=== PATIENT | male | born 1995 | race Caucasian/White ===

== ENCOUNTER 2018-09-07 08:32 | Emergency (ER) | payer BC, OTHER ==
[~2018-09-07] VITALS: Ht 175.3 cm; Wt 59.0 kg
[2018-09-07] MEDS ORDERED: FAMOTIDINE 20 MG/2 ML VIAL IVP ONE (09:00)
[2018-09-07] MEDS ORDERED: IV NORMAL SALINE 1000ML BAG 1,000 ML IV ONE ×2 (09:00→09:15)
[2018-09-07] MEDS ORDERED: ONDANSETRON PF 4 MG/2 ML VIAL. IV ONE ×2 (09:00→09:45)
--- NOTE | 2018-09-07 09:00 | PHYS DOC ---
Past Medical History Past Medical History: Asthma Past Surgical History: No Surgical History Alcohol Use: Rarely Drug Use: Marijuana Adult General Chief Complaint Chief Complaint: NAUSEA/VOMITING/DIARRHA HPI HPI Patient is a 23 year old male with history of asthma who presents to the ED today with nausea, vomiting, diarrhea, generalized abdominal pain, symptoms began last night. Patient denies any fever. Denies any hematemesis or melena. He states he has generalized weakness. He admits to marijuana use. Review of Systems Review of Systems Constitutional: Denies fever or chills [] Eyes: Denies change in visual acuity, redness, or eye pain [] HENT: Denies nasal congestion or sore throat [] Respiratory: Denies cough or shortness of breath [] Cardiovascular: No additional information not addressed in HPI [] GI: Reports generalized abdominal pain, nausea, vomiting, diarrhea : Denies dysuria or hematuria [] Musculoskeletal: Denies back pain or joint pain [] Integument: Denies rash or skin lesions [] Neurologic: Denies headache, focal weakness or sensory changes [] All other systems were reviewed and found to be within normal limits, except as documented in this note. Current Medications Current Medications Current Medications Medications (Trade) Dose Ordered Sig/Melissa Start Time Stop Time Status Last Admin Dose Admin Famotidine (Pepcid Vial) 20 mg 1X ONCE 09/07/18 09:00 09/07/18 09:01 DC 09/07/18 09:09 20 MG Haloperidol Lactate (Haldol Inj) 2.5 mg 1X ONCE 09/07/18 10:15 09/07/18 10:16 DC Info (CONTRAST GIVEN -- Rx MONITORING) 1 each PRN DAILY PRN 09/07/18 09:45 09/09/18 09:44 Iohexol (Omnipaque 300 Mg/ml) 75 ml 1X ONCE 09/07/18 09:45 09/07/18 09:46 DC 09/07/18 09:50 75 ML Ondansetron HCl (Zofran) 4 mg 1X ONCE 09/07/18 09:45 09/07/18 09:46 DC 09/07/18 09:57 4 MG Sodium Chloride 1,000 ml @ 1,000 mls/hr 1X ONCE 09/07/18 09:15 09/07/18 10:14 DC 09/07/18 09:58 1,000 MLS/HR Allergies Allergies Allergies Coded Allergies Type Severity Reaction Last Updated Verified No Known Drug Allergies 09/09/14 No Physical Exam Physical Exam Constitutional: Well developed, well nourished, no acute distress, non-toxic appearance. [] HENT: Normocephalic, atraumatic, bilateral external ears normal, oropharynx moist, no oral exudates, nose normal. [] Eyes: PERRLA, EOMI, conjunctiva normal, no discharge. [] Neck: Normal range of motion, no tenderness, supple, no stridor. [] Cardiovascular:Heart rate regular rhythm, no murmur [] Lungs & Thorax: Bilateral breath sounds clear to auscultation [] Abdomen: Patient is actively vomiting in the ED. Bowel sounds normal, soft, no tenderness, no masses, no pulsatile masses. [] Skin: Warm, dry, no erythema, no rash. [] Back: No tenderness, no CVA tenderness. [] Extremities: No tenderness, no cyanosis, no clubbing, ROM intact, no edema. [] Neurologic: Alert and oriented X 3, normal motor function, normal sensory function, no focal deficits noted. [] Psychologic: Affect normal, judgement normal, mood normal. [] Current Patient Data Vital Signs Vital Signs Date Time Temp Pulse Resp B/P (MAP) Pulse Ox O2 Delivery O2 Flow Rate FiO2 09/07/18 12:13 53 18 158/95 (116) 99 Room Air 09/07/18 08:40 97.2 97.2 Lab Values Laboratory Tests Test 09/07/18 08:51 09/07/18 08:55 09/07/18 10:45 Glucose (Fingerstick) 185 mg/dL (70-99) H White Blood Count 15.6 x10^3/uL (4.0-11.0) H Red Blood Count 4.84 x10^6/uL (4.30-5.70) Hemoglobin 14.5 g/dL (13.0-17.5) Hematocrit 42.5 % (39.0-53.0) Mean Corpuscular Volume 88 fL (79-100) Mean Corpuscular Hemoglobin 30 pg (25-35) Mean Corpuscular Hemoglobin Concent 34 g/dL (31-37) Red Cell Distribution Width 13.7 % (11.5-14.5) Platelet Count 294 x10^3/uL (140-400) Neutrophils (%) (Auto) 55 % (31-73) Lymphocytes (%) (Auto) 36 % (24-48) Monocytes (%) (Auto) 6 % (0-9) Eosinophils (%) (Auto) 2 % (0-3) Basophils (%) (Auto) 1 % (0-3) Neutrophils # (Auto) 8.6 x10^3uL (1.8-7.7) H Lymphocytes # (Auto) 5.6 x10^3/uL (1.0-4.8) H Monocytes # (Auto) 0.9 x10^3/uL (0.0-1.1) Eosinophils # (Auto) 0.3 x10^3/uL (0.0-0.7) Basophils # (Auto) 0.1 x10^3/uL (0.0-0.2) Sodium Level 137 mmol/L (136-145) Potassium Level 3.5 mmol/L (3.5-5.1) Chloride Level 100 mmol/L (98-107) Carbon Dioxide Level 19 mmol/L (21-32) L Anion Gap 18 (6-14) H Blood Urea Nitrogen 17 mg/dL (8-26) Creatinine 0.9 mg/dL (0.7-1.3) Estimated GFR (Cockcroft-Gault) 106.5 BUN/Creatinine Ratio 19 (6-20) Glucose Level 175 mg/dL (70-99) H Calcium Level 9.6 mg/dL (8.5-10.1) Total Bilirubin 2.0 mg/dL (0.2-1.0) H Aspartate Amino Transferase (AST) 19 U/L (15-37) Alanine Aminotransferase (ALT) 16 U/L (16-63) Alkaline Phosphatase 71 U/L (46-116) Total Protein 8.8 g/dL (6.4-8.2) H Albumin 4.8 g/dL (3.4-5.0) Albumin/Globulin Ratio 1.2 (1.0-1.7) Lipase 199 U/L (73-393) Salicylates Level < 2.8 mg/dL (2.8-20.0) L Salicylate Last Dose Date Unknown Salicylate Last Dose Time Unknown Acetaminophen Level < 2 mcg/ml (10-30) L Acetaminophen Last Dose Date Unknown Acetaminophen Last Dose Time Unknown Ethyl Alcohol Level < 10 mg/dL (0-10) Urine Collection Type Unknown Urine Color Yellow Urine Clarity Clear Urine pH 7.0 Urine Specific [place] >=1.030 Urine Protein Negative mg/dL (NEG-TRACE) Urine Glucose (UA) Negative mg/dL (NEG) Urine Ketones (Stick) >=80 mg/dL (NEG) Urine Blood Negative (NEG) Urine Nitrite Negative (NEG) Urine Bilirubin Negative (NEG) Urine Urobilinogen Dipstick 0.2 mg/dL (0.2 mg/dL) Urine Leukocyte Esterase Negative (NEG) Urine RBC 0 /HPF (0-2) Urine WBC 1-4 /HPF (0-4) Urine Squamous Epithelial Cells Occ /LPF Urine Bacteria Few /HPF (0-FEW) Urine Mucus Slight /LPF Urine Opiates Screen Neg (NEG) Urine Methadone Screen Neg (NEG) Urine Barbiturates Neg (NEG) Urine Phencyclidine Screen Neg (NEG) Urine Amphetamine/Methamphetamine Neg (NEG) Urine Benzodiazepines Screen Neg (NEG) Urine Cocaine Screen Neg (NEG) Urine Cannabinoids Screen Pos (NEG) Urine Ethyl Alcohol Neg (NEG) Laboratory Tests 09/07/18 08:55 Laboratory Tests 09/07/18 08:55 EKG EKG [address] Contreras Sinus arrhythmia heart rate 54 no STEMI Radiology/Procedures Radiology/Procedures []PROCEDURE: CT ABD PELV W/ IV CONTRST ONLY CT abdomen pelvis with contrast dated 09/07/2018. No comparison available. Clinical data indication: Nausea vomiting abdominal pain. TECHNIQUE: Contiguous axial imaging the abdomen and pelvis performed after the administration of 75 cc Omnipaque 300. One or more of the following individualized dose reduction techniques were utilized for this examination: 1. Automated exposure control 2. Adjustment of the mA and/or kV according to patient size 3. Use of iterative reconstruction technique FINDINGS: Limited images of lung bases are clear. Heart size within normal limits. No pleural or pericardial effusion. Liver, spleen, pancreas, adrenal glands, gallbladder and kidneys are unremarkable. No hydronephrosis. Unopacified GI tract normal in caliber and contour. No focal bowel wall thickening. No inflammatory stranding in the mesentery. Appendix normal in caliber. No ascites or lymphadenopathy. Abdominal aorta normal in caliber. Images of pelvis show nondistended urinary bladder. No free pelvic fluid or pelvic lymphadenopathy. There is a nodular focus of soft tissue density in the left inguinal canal of uncertain etiology. Bone windows show no acute findings. IMPRESSION: 1. No acute abnormality of abdomen or pelvis. Normal appendix. 2. Abnormal focus of soft tissue density in the left inguinal canal, possibly related to an undescended testicle. Recommend physical exam correlation. Electronically signed by: Harshil Mercado MD (09/07/2018 10:16 AM) [facility] DICTATED and SIGNED BY: HARSHIL MERCADO MD DATE: 09/07/18 1016 Course & Med Decision Making Course & Med Decision Making Pertinent Labs and Imaging studies reviewed. (See chart for details) This is a 23-year-old male patient presenting to the ED today with nausea, vomiting, diarrhea, generalized abdominal pain, symptoms began last night, patient actively vomiting loudly on arrival to the ED. He admits to marijuana use. CBC with a WBC of 15.6, CMP with nothing really acute. Positive for marijuana use. I highly suspect this patient has cyclic vomiting from marijuana use. Patient was given 2 L of IV fluids, nausea medicine, Haldol. He has stopped vomiting. He'll be discharged to home. Educated on not using marijuana. Follow- up with GI in one week. Dragon Disclaimer Mario Disclaimer This electronic medical record was generated, in whole or in part, using a voice recognition dictation system. Departure Departure Impression: Primary Impression: Cyclical vomiting Additional Impression: Marijuana user Disposition: HOME, SELF-CARE Condition: STABLE Referrals: NO PCP (PCP) SAMARA LIU MD follow up in 1 week Patient Instructions: Cyclic Vomiting Syndrome, Marijuana Abuse-Brief Additional Instructions: You were evaluated in the emergency room, and noted to be using marijuana, people who use marijuana tend to have cyclic vomiting, this condition causes cycles of nausea and vomiting. We recommend you consider not using this drug. Follow-up with your own doctor in 1-3 weeks. Scripts Albuterol Sulfate (VENTOLIN HFA INHALER) 18 Gm Hfa.aer.ad 2 PUFF INH Q4HRS for FOR ASTHMA, #1 INHALER 0 Refills Prov: MUTUNGA,POLLO BUILD [employer]OM[employer] ENGINEER 09/07/18 Ondansetron Hcl (ZOFRAN) 4 Mg Tablet 1 TAB PO Q6HRS, #20 TAB Prov: MUTUNGA,POLLO BUILD [employer]OM[employer] ENGINEER 09/07/18 Problem Qualifiers Primary Impression: Cyclical vomiting Vomiting Intractability: non-intractable Nausea presence: unspecified Qualified Codes: G43.A0 - Cyclical vomiting, not intractable POLLO ALLISON APRN Sep 07, 2018 09:00
[2018-09-07 09:09] LABS: BASO # 0.1 x10^3/uL (0.0-0.2); BASO % 1 % (0-3); EOS # 0.3 x10^3/uL (0.0-0.7); EOS % 2 % (0-3); HEMATOCRIT 42.5 % (39.0-53.0); HEMOGLOBIN 14.5 g/dL (13.0-17.5); LYMPH # 5.6 x10^3/uL (1.0-4.8); LYMPH % 36 % (24-48); MEAN CORPUSCULAR HEMOGLOBIN 30 pg (25-35); MEAN CORPUSCULAR HGB CONC 34 g/dL (31-37); MEAN CORPUSCULAR VOLUME 88 fL (79-100); MONO # 0.9 x10^3/uL (0.0-1.1); MONO % 6 % (0-9); NEUT # 8.6 x10^3uL (1.8-7.7); NEUT % 55 % (31-73); PLATELET COUNT 294 x10^3/uL (140-400); RED BLOOD COUNT 4.84 x10^6/uL (4.30-5.70); RED CELL DISTRIBUTION WIDTH 13.7 % (11.5-14.5); WHITE BLOOD COUNT 15.6 x10^3/uL (4.0-11.0)
[2018-09-07 09:20] LABS: CALCIUM 9.6 mg/dL (8.5-10.1); CREATININE 0.9 mg/dL (0.7-1.3); GFR 106.5; POTASSIUM 3.5 mmol/L (3.5-5.1)
[2018-09-07 09:27] LABS: ACETAMIN < 2 mcg/ml (10-30); ALBUMIN 4.8 g/dL (3.4-5.0); ALBUMIN/GLOBULIN RATIO 1.2 (1.0-1.7); ETHANOL < 10 mg/dL (0-10); SALIC < 2.8 mg/dL (2.8-20.0); TOTAL PROTEIN 8.8 g/dL (6.4-8.2)
[2018-09-07] MEDS ORDERED: HALOPERIDOL LACTATE 5 MG/ML VIAL. IVP ONE ×3 (09:45→10:15)
[2018-09-07] MEDS ORDERED: IOHEXOL 300 MG/ML 100ML VIAL. IV ONE (09:45)
[2018-09-07] MEDS ORDERED: CONTRAST GIVEN. MC PRN (09:45)
--- NOTE | 2018-09-07 09:53 | EKG ---
[facility] [address] [place] [address] Test Date: 2018-09-07 Test Time: 09:05:39 Pat Name: GUEVARA HELMS Department: Room: Gender: M [employer] Supervisor: : 1995 Requested By: POLLO ALLISON Order Number: [id number] Reading MD: Tommie Geiger MD Measurements Intervals Bennett Rate: 54 P: MT: QRS: 73 QRSD: 90 T: 70 QT: 440 QTc: 423 Interpretive Statements SR PAC'S Electronically Signed On 09-16-2018 9:26:02 CDT by Tommie Geiger MD
--- NOTE | 2018-09-07 10:20 | RAD ---
CT abdomen pelvis with contrast dated 09/07/2018. No comparison available. Clinical data indication: Nausea vomiting abdominal pain. TECHNIQUE: Contiguous axial imaging the abdomen and pelvis performed after the administration of 75 cc Omnipaque 300. One or more of the following individualized dose reduction techniques were utilized for this examination: 1. Automated exposure control 2. Adjustment of the mA and/or kV according to patient size 3. Use of iterative reconstruction technique FINDINGS: Limited images of lung bases are clear. Heart size within normal limits. No pleural or pericardial effusion. Liver, spleen, pancreas, adrenal glands, gallbladder and kidneys are unremarkable. No hydronephrosis. Unopacified GI tract normal in caliber and contour. No focal bowel wall thickening. No inflammatory stranding in the mesentery. Appendix normal in caliber. No ascites or lymphadenopathy. Abdominal aorta normal in caliber. Images of pelvis show nondistended urinary bladder. No free pelvic fluid or pelvic lymphadenopathy. There is a nodular focus of soft tissue density in the left inguinal canal of uncertain etiology. Bone windows show no acute findings. IMPRESSION: 1. No acute abnormality of abdomen or pelvis. Normal appendix. 2. Abnormal focus of soft tissue density in the left inguinal canal, possibly related to an undescended testicle. Recommend physical exam correlation. Electronically signed by: Harshil Mercado MD (09/07/2018 10:16 AM) [facility]
[2018-09-07 10:57] LABS: BILIRUBIN,URINE NEGATIVE (NEG); CLARITY,URINE CLEAR; COLOR,URINE YELLOW; NITRITE,URINE NEGATIVE (NEG); PROTEIN,URINE NEGATIVE (NEG-TRACE); UROBILINOGEN,URINE 0.2 mg/dL (0.2 mg/dL)
[2018-09-07 11:04] LABS: BACTERIA,URINE FEW /HPF (0-FEW); RBC,URINE 0 /HPF (0-2); SQUAMOUS EPITHELIAL CELL,UR OCC /LPF
[2018-09-07 11:27] LABS: BARBITURATES NEG (NEG); BENZODIAZEPINES NEG (NEG); CANNABINOIDS POS (NEG); COCAINE NEG (NEG); METHADONE NEG (NEG); OPIATES NEG (NEG); PHENCYCLIDINE NEG (NEG)
[2018-09-07 11:28] LABS: AMPHETAMINE/METHAMPHETAMINE NEG (NEG)
[2018-09-07] MEDS ORDERED: ONDA4TAB7 PO (12:27)
[2018-09-07 13:22] VITALS: BP 175/94
[2018-09-07] MEDS ORDERED: VENTOLIN HFA18 GM INH (13:40)
== END 2018-09-07 13:45 | disposition home or self-care (01) ==
LOC: ER 08:32
DX: G43.A0 Cyclical vomiting, in migraine, not intractable (principal); R19.7 Diarrhea, unspecified; R10.84 Generalized abdominal pain; R53.1 Weakness; F12.20 Cannabis dependence, uncomplicated; J45.909 Unspecified asthma, uncomplicated
CPT/HCPCS: 36415; 74177; 80053; 80307; 80329; 81001; 82962; 83690; 85025; 93005; 96361; 96374; 96375; 96376; 99284; G0480; G6039; J1630; J2405; J3490; J7030; Q9967